=== PATIENT | female | born 1960 | race Two or more races ===

== ENCOUNTER → 2024-12-17 | Outpatient (CLI) | payer MEDICAID, SELFPAY ==
--- NOTE | 2024-12-17 09:00 | XR_ITS ---
Examination: Esophagram standard 22 spot fluoroscopic films of the esophagus Soft tissue lateral neck single view Upright PA chest single view Fluoroscopy Date and time: December 17, 2024, 0905 hours INDICATIONS: 89 years, reconstructed in the esophagus appears TECHNIQUE AND FINDINGS: Upright PA chest demonstrates normal heart size, lungs are clear Soft tissue lateral neck demonstrates normal epiglottis no prevertebral soft tissue prominence Patient swallowed barium with 22 spot fluoroscopic films of the esophagus Fluoroscopy 0.5 minute radiation dose 35.08 milligray Secondary and tertiary esophageal contractions Mild intermittent gastroesophageal reflux No stricture the gastroesophageal junction Moderate esophageal hernia IMPRESSION: Esophageal dysmotility Moderate intermittent gastroesophageal reflux No stricture at the gastroesophageal junction Moderate esophageal hernia
== END | disposition home or self-care (01) ==
PROVIDERS: PCP Nurse Practitioner Family; Referring Provider Nurse Practitioner Family; Visit Provider Nurse Practitioner Family
DX: K21.9 Gastro-esophageal reflux disease without esophagitis (principal); K22.9 Disease of esophagus, unspecified; K44.9 Diaphragmatic hernia without obstruction or gangrene
CPT/HCPCS: 74220; A4649